=== PATIENT | female | born 2000 | race Two or more races ===

== ENCOUNTER 2022-04-24 19:22 | Emergency (ER) | payer BC, MEDICAID ==
--- NOTE | 2022-04-24 20:05 | NUR ---
CALLED FOR TRAIGE NO ANSWER.
--- NOTE | 2022-04-24 20:21 | NUR ---
CALLED FOR TRIAGE, NOT IN THE WAITING ROOM.
--- NOTE | 2022-04-24 20:30 | NUR ---
CALLED FOR TRIAGE STILL NO ANSWER.
== END 2022-04-24 21:00 | disposition left against medical advice (07) ==
LOC: ER 19:26
DX: Z53.21 Procedure and treatment not carried out due to patient leaving prior to being seen by health care provider (principal)

== ENCOUNTER 2024-03-26 13:36 | Emergency (ER) | payer BC ==
[~2024-03-26] VITALS: Ht 165.1 cm; Wt 52.2 kg
[2024-03-26 13:50] VITALS: BP 106/72; TEMP 98.1
[2024-03-26 14:28] VITALS: O2SAT 99
== END 2024-03-26 14:29 | disposition home or self-care (01) ==
LOC: ER 13:41
DX: M79.672 Pain in left foot (principal)